=== PATIENT | female | born 1950 | race Caucasian/White ===

== ENCOUNTER 2022-02-10 13:33 | Emergency (ER) | payer OTHER ==
[~2022-02-10] VITALS: Ht 172.7 cm; Wt 73.0 kg
[~2022-02-10 13:33] MED LIST: ATARAX25 MG PO; ZEBETA5 MG; ZYRTEC10 M3 PO
== END 2022-02-10 17:16 | disposition home or self-care (01) ==
LOC: ER 13:33
DX: U07.1 COVID-19 (principal); R09.81 Nasal congestion